=== PATIENT | female | born 1960 | race Caucasian/White ===

== ENCOUNTER → 2023-07-22 12:10 | Outpatient (CLI) | payer OTHER, SELFPAY ==
--- NOTE | 2023-07-22 12:13 | DI.CT.S_ITS ---
PROCEDURE: CT ABDOMEN PELVIS W CON INDICATIONS: Unspecified abdominal pain TECHNIQUE: After the administration of intravenous contrast, axial sections acquired from the lung bases to the pubic symphysis. Coronal and sagittal reformats were performed. For radiation dose reduction, the following was used: automated exposure control, adjustment of mA and/or kV according to patient size. COMPARISON: Non. FINDINGS: Image quality: Diagnostic. Lower Chest: Mild bibasilar atelectasis. Moderate hiatal hernia. Heart size is normal. ABDOMEN: Liver: No solid mass. There is diffuse hypoattenuation of the liver parenchyma relative to the spleen compatible with hepatic steatosis. Gallbladder: No radiopaque gallstones or wall thickening. Biliary ducts: No biliary dilation. Pancreas: No ductal dilation. Spleen: Size is within normal limits. Adrenal Glands: No adrenal nodules. Kidneys and Ureters: No hydronephrosis. No solid mass. No complex renal cystic lesion which requires follow up. There is mild wall enhancement involving the left renal pelvis and proximal left ureter. Minimal stranding. Homogeneous, symmetric renal parenchymal enhancement bilaterally. Stomach and Bowel: Normal colonic caliber, without significant wall thickening. Normal appendix. Peritoneum: No abnormal intraperitoneal fluid. No free air. Ventral Wall: No significant ventral hernia. Abdominal Nodes: No retroperitoneal or mesenteric adenopathy by size criteria. Vessels: Aorta and inferior vena cava are normal in size. PELVIS: Pelvic Organs: Unremarkable. Bladder: Urinary bladder wall is within normal limits for degree of bladder distension. There is air in the anti dependent portions of the urinary bladder. No significant wall thickening. No perivesicular stranding. Pelvic Nodes: No enlarged lymph nodes. Miscellaneous: No inguinal hernias are seen. Bones: No aggressive osseous abnormality. Visualized osseous structures appear intact without acute fracture or focal destructive lesion. No acute compression fractures of the imaged spine. Mild multilevel spondylosis. IMPRESSION: There is air within the anti dependent portions of the urinary bladder without associated wall thickening or perivesicular stranding. Unless the patient has had recent instrumentation, findings are suspicious for cystitis with possible gas forming organism. Recommend clinical and laboratory correlation. Additionally, there is minimal enhancement of the left renal pelvis and proximal left ureter with associated subtle stranding. Findings may represent an ascending urinary tract infection. No CT evidence for pyelonephritis. Hiatal hernia. Hepatic steatosis. Other chronic findings as above. Dictated by: Mark Leal M.D. on 07/22/2023 at 20:11 Approved by: Mark Leal M.D. on 07/22/2023 at 20:58
[2023-07-22 12:54] LABS: Estimated Glomerular Filt Rate > 60 mL/min (>60)
== END ==
PROVIDERS: Radiology Diagnostic Radiology; Referring Provider Family Medicine; Visit Provider Family Medicine
DX: K44.9 Diaphragmatic hernia without obstruction or gangrene (principal); K76.0 Fatty (change of) liver, not elsewhere classified; R10.9 Unspecified abdominal pain; J98.11 Atelectasis
CPT/HCPCS: 74177; 82565; Q9967